=== PATIENT | male | born 1975 | race Caucasian/White ===

== ENCOUNTER 2023-08-26 06:41 | Day surgery (SDC) | payer BC ==
[~2023-08-26] VITALS: Ht 190.5 cm; Wt 97.5 kg
[~2023-08-26 06:41] MED LIST: LR 1,000 ML IV SCH; NKDA; NO HOME MEDICATIONS; Ondansetron 4 MG/2 ML VIAL IV PRN
[2023-08-26] MEDS ORDERED: CELEXA 20MG20 MG/TAB PO (07:11)
[2023-08-26] MEDS ORDERED: fentaNYL 50 MCG/ML 2 ML VIAL ONE (08:08)
[2023-08-26] MEDS ORDERED: Lidocaine PF 2% (20 MG/ML) 5 ML VIAL ONE (08:08)
[2023-08-26 08:17] VITALS: BP 117/80; PULSE 68; TEMP 97.6
[2023-08-26 09:00] VITALS: BP 116/72; PULSE 70; TEMP 97.5
[2023-08-26 09:15] VITALS: BP 116/71; PULSE 60
--- NOTE | 2023-08-26 09:25 | NUR ---
0900 RETURNS TO ROOM 2 PER CART. AWAKE, ALERT. RESP UNLABORED. AMBULATES TO RECLINER WITH STAND BY ASSIST. DENIES NAUSEA OR ABD PAIN. VITAL SIGNS OBTAINED. CALL LIGHT AT SIDE. SIGNIFICANT OTHER IN ROOM. DR. GARCIA VISITED WITH SOGNIFICANT OTHER PRIOR TO PATIENT RETURNING TO ROOM. 0910 TOLERATES PO JUICE WITHOUT NAUSEA. DISCHARGE INSTRUCTIONS REVIEWED. PATIENT VERBALIZES UNDERSTANDING. COPY PROVIDED IN DISCHARGE FOLDER 0987 DRESSES SELF
== END 2023-08-26 09:25 | disposition home or self-care (01) ==
LOC: SDCO 06:41
DX: Z12.11 Encounter for screening for malignant neoplasm of colon (principal); Z80.3 Family history of malignant neoplasm of breast
CPT/HCPCS: J2704; J3010; J7120